=== PATIENT | male | born 1950 | race Caucasian/White ===

== ENCOUNTER → 2016-12-25 | Outpatient (CLI) | payer OTHER ==
[~2016-12-25] MED LIST: ASPI81TA28 PO; CIPR1TAB11 PO; CYAN5000 PO; ESOM20CA PO; LEVO100T PO; METH500T3 PO; MULT-506 PO; MULT1TAB30 PO; NTRSLP4 SL; PHEN-775 PO; POLY335019 PO; TAMS0.4C38 PO
[2016-12-25 12:17] LABS: THYROID STIMULATING HORMONE 0.006 uIu/ml (0.300-4.500)
== END | disposition home or self-care (01) ==
LOC: C.LABPVFM 07:52
PROVIDERS: ATTEND Nurse Practitioner Adult Health
DX: E03.9 Hypothyroidism, unspecified (principal); N40.1 Benign prostatic hyperplasia with lower urinary tract symptoms

== ENCOUNTER → 2017-02-07 | Outpatient (CLI) | payer OTHER | END | disposition home or self-care (01) | LOC: C.PATHSPEC 17:04 | PROVIDERS: ATTEND Urology | DX: R97.20 Elevated prostate specific antigen [PSA] (principal) ==

== ENCOUNTER 2017-03-10 20:49 | Emergency (ER) | payer OTHER ==
[~2017-03-10] VITALS: Ht 180.3 cm; Wt 88.9 kg
[~2017-03-10 20:49] MED LIST changes: -TAMS0.4C38 PO
[2017-03-10 21:06] VITALS: BP 146/89; PULSE 68; TEMP 36.5; O2SAT 93; Ht 180.3 cm; Wt 88.9 kg
[2017-03-10] MEDS ORDERED: TAMS0.4C38 PO (21:35)
--- NOTE | 2017-03-10 21:36 | DIAGNOSTIC IMAGING REPORT ---
RIGHT SHOULDER 3 VIEWS HISTORY: right shoulder pain Right COMPARISON: None. FINDINGS: There is no fracture or dislocation. Soft tissues are unremarkable. The right clavicle is intact. Mild osteoarthritis within the glenohumeral and AC joints. IMPRESSION: No fracture or dislocation within the right shoulder. Mild osteoarthritis. Electronically signed by: Shawn Garcia M.D. 03/10/2017 9:34 PM Dictated Date/Time: 03/10/2017 9:33 PM
[2017-03-10] MEDS ORDERED: KETOROLAC TROMETHAMINE 60 MG/2 ML VIAL IM STA (21:47)
--- NOTE | 2017-03-11 03:53 | EMERGENCY ROOM VISIT NOTE ---
ED Visit Note First contact with patient: 21:39 CHIEF COMPLAINT: Shoulder pain HISTORY OF PRESENT ILLNESS: This 67-year-old patient presents to the emergency department with complaining of pain in the right bicep / shoulder for the past day after moving equipment and lifting. There is limitation of motion of the arm because of the pain. The pain is moderate, constant and increases with motion of the hand and arm. The patient states the pain is throbbing and 5/10. The patient has taken nothing for relief of the pain. No previous significant previous shoulder disease or injury. No numbness or tingling. no neck no back pain. No chest pain or shortness of breath. No abdominal pain or nausea/ vomiting. No cough. REVIEW OF SYSTEMS: A 6 system review of systems was performed with positives and pertinent negatives in the HPI. ALLERGIES: none MEDICATIONS: Synthroid, reviewed PMH: Hypothyroidism, BPH SOCIAL HISTORY: No drug use PHYSICAL EXAM: Vital Signs: Reviewed nurse's notes, vital signs stable. GENERAL : Pleasant male, in no acute distress, but appears to be in pain, well-developed , well-nourished. MUSCULOSKELETAL: There is no deformity in the contour of the right shoulder and there are no jeremías deformities noted. There is no sulcus sign. There is tenderness over the biceps insertion of the proximal humerus. The patient's range of motion is limited secondary to pain. Supraspinatus strength 5/5. There is no clavicle tenderness. No tenderness of the humerus, elbow, wrist, or hand. Agate Setter strength 5/5. Radial pulse 2+. NECK: no tenderness to palpation over the cervical spine. . HEART: Regular rate and rhythm without murmurs gallops or rubs. LUNGS: Clear to auscultation bilaterally without wheezes, rales or rhonchi. No accessory muscle use. No retractions. NEURO: The patient is alert and oriented to person, place, and time. Normal sensation to light and sharp touch. Capillary refill less than 2 seconds. EMERGENCY DEPARTMENT COURSE: I examined the patient. An X-ray of the right shoulder was reviewed by myself and radiology and shows no fracture. Patient was advised to use sling for comfort and to frequently do range of motion exercises with his shoulder as not to develop frozen shoulder. He was advised to take Tylenol or Motrin as needed for pain and to follow-up with orthopedics in a few days if symptoms persist or here in the ER sooner for severe pain, numbness, tingling, worsening signs or symptoms or as needed. He was discharged home in stable condition with family. DIAGNOSIS: Right biceps strain DISCHARGE INSTRUCTIONS & TREATMENT: As below Current/Historical Medications Scheduled Aspirin (Aspirin Ec), 81 MG PO QPM Cyanocobalamin (Vitamin B-12), 5,000 MCG PO DAILY Levothyroxine Sodium (Synthroid), 100 MCG PO DAILY Multivitamin (Multivitamin), 1 TAB PO DAILY Tamsulosin Hcl (Flomax), 0.4 MG PO DAILY Scheduled PRN Esomeprazole Magnesium (Nexium), 20 MG PO BID PRN for Heartburn Nitroglycerin (Nitrostat), 0.4 MG SL UD PRN for Chest Pain Allergies Coded Allergies: No Known Allergies (Unverified , 10/24/16) Vital Signs Date Time Temp Pulse Resp B/P Pulse Ox O2 Delivery O2 Flow Rate FiO2 03/10/17 21:06 36.5 68 18 146/89 93 Room Air Medications Administered Medications (Trade) Dose Ordered Sig/Corby Route Start Time Stop Time Status Last Admin Dose Admin Ketorolac Tromethamine (Toradol Inj) 60 mg NOW STAT IM 03/10/17 21:47 03/10/17 21:48 DC 03/10/17 21:52 60 MG Departure Information Impression Primary Impression: Strain of right biceps Dispostion Home / Self-Care Condition GOOD Forms HOME CARE DOCUMENTATION FORM, IMPORTANT VISIT INFORMATION Patient Instructions [facility] Additional Instructions Ibuprofen(Motrin, Advil) may be used for fever or pain. Use 600mg every six hours as needed. Take with food. Avoid using more than 2400mg in a 24 hour period. Do not use 2400mg per day for more than three consecutive days without physician direction. Prolonged inappropriate use can lead to stomach upset or ulcers. This medication can be taken if you need to drive, work, or perform activities which may be dangerous when taking narcotic pain medication. (AND/OR) Acetaminophen(Tylenol) may be used for fever or pain. Use 1000mg every six hours as needed. Avoid using more than 3000mg in a 24 hour period. This medication can be taken if you need to drive, work, or perform activities which may be dangerous when taking narcotic pain medication. Ice compresses for 20 minutes at a time four times daily for 2-3 days. Use the sling as instructed. Remove your arm from the sling 4-6 times a day and move all the joints around to keep them loose. Rest and elevate your injury. Continue current medications. Return to the ER immediately for any numbness, tingling, severe pain, extreme swelling in the extremity or as needed. Call Orthopedics tomorrow in 5-7 days if symptoms persist to arrange follow up for your injury.
== END 2017-03-10 22:42 | disposition home or self-care (01) ==
LOC: C.EDB 20:51 → C.EDD 22:42
DX: S46.211A Strain of muscle, fascia and tendon of other parts of biceps, right arm, initial encounter (principal); X58.XXXA Exposure to other specified factors, initial encounter; E03.9 Hypothyroidism, unspecified; N40.0 Benign prostatic hyperplasia without lower urinary tract symptoms; Z79.82 Long term (current) use of aspirin; Z79.899 Other long term (current) drug therapy

== ENCOUNTER → 2017-03-22 | Outpatient (CLI) | payer OTHER ==
[~2017-03-22] MED LIST changes: -CIPR1TAB11 PO; -METH500T3 PO; -MULT1TAB30 PO; -PHEN-775 PO; -POLY335019 PO; +TAMS0.4C38 PO
== END | disposition home or self-care (01) ==
LOC: C.LABPVFM 07:48
PROVIDERS: ATTEND Family Medicine
DX: E03.9 Hypothyroidism, unspecified (principal)

== ENCOUNTER → 2017-04-11 | Outpatient (CLI) | payer OTHER ==
[2017-04-11 12:32] LABS: ALT/SGPT 28 U/L (12-78); AST/SGOT 17 U/L (15-37); BLOOD UREA NITROGEN 17 mg/dl (7-18); BUN/CREATININE RATIO 14.1 (10-20); CARBON DIOXIDE 29 mmol/L (21-32); CHLORIDE 105 mmol/L (98-107); GLUCOSE 98 mg/dl (70-99); POTASSIUM 4.2 mmol/L (3.5-5.1); SODIUM 140 mmol/L (136-145)
[2017-04-11 12:35] LABS: ALB/GLOB RATIO 1.4 (0.9-2); ALKALINE PHOSPHATASE 83 U/L (45-117); CHOLESTEROL 200 mg/dl (0-200); CHOLESTEROL/HDL RATIO 3.1; HDL CHOLESTEROL 65 mg/dl; LDL CHOLESTEROL CALCULATED 117 mg/dl; TRIGLYCERIDES 91 mg/dl (0-150); VERY LOW DENSITY LIPOPROT CALC 18 mg/dl
== END | disposition home or self-care (01) ==
LOC: C.LABPVFM 07:52
PROVIDERS: ATTEND Neuromusculoskeletal Medicine & OMM
DX: Z00.00 Encounter for general adult medical examination without abnormal findings (principal); N52.9 Male erectile dysfunction, unspecified; Z11.59 Encounter for screening for other viral diseases

== ENCOUNTER → 2017-12-06 | Outpatient (CLI) | payer OTHER | END | disposition home or self-care (01) | LOC: C.LABPVFM 07:37 | PROVIDERS: ATTEND Family Medicine | DX: E03.9 Hypothyroidism, unspecified (principal); R97.20 Elevated prostate specific antigen [PSA] ==